=== PATIENT | female | born 1935 | race Caucasian/White ===

== ENCOUNTER 2017-01-06 15:45 | Outpatient (CLI) | payer OTHER ==
[~2017-01-06 15:45] MED LIST: CARVEDILOL3.125 MG PO; COMBIVENT RESPIMAT IN; COUMADIN2.5 MG PO; DEMADEX10 MG PO; DIGITEK0.125 MG PO; DORZOLAMIDE HCL2 % OP; ESTRADIOL; ESTRADIOL0.025 MG/1 TOP; FOSAMAX70 MG PO; GARLIC PO; GLACOMA EYE DROPS; KLOR-CON 1010 MEQ PO; LATANOPROST0.005 % OP; LISINOPRIL10 MG PO; MUCINEX600 MG PO; NORCO1 TA1 PO; PARSLEY PO; PRILOSEC OTC20 MG PO; PRINIVIL5 MG PO; PROLIA60 MG/ML IM; QVAR80 MCG IN; TYLENOL325 MG PO; VENTOLIN HFA IN; VITAMIN D-31000 UNIT PO; WARFARIN SODIU2.5 MG PO; [UNRECOGNIZED DRUG - OTHER] PO
--- NOTE | 2017-01-06 18:17 | DIAGNOSTIC IMAGING REPORT ---
PROCEDURE: US BREAST ULTRASOUND - LEFT INDICATION: LEFT BREAST SWELLING, ERRYTHEMA, POST LUMPECTOMY 11/10 TECHNIQUE: High resolution wilkinson scale and color Doppler sonographic images of the left breast. COMPARISON: None. FINDINGS: There is a 7 x 3 x 1.5 cm fluid collection in the caudal aspect of the left breast consistent with seroma. IMPRESSION: 1. There is 7 x 3 x 1.5 cm fluid collection in the caudal left breast, most consistent with seroma. 2. Findings discussed with Jennifer Crouch. RESULT CODE: 2- Benign finding(s). A. A negative report should not delay biopsy if a dominant or clinically suspicious mass is present. 10-15% of cancers are not identified by x-ray. B. A negative report may reinforce clinical impression. C. Adenosis and dense breasts may obscure an underlying neoplasm. D. False positive reports average 6-10%. E.. A yearly screening mammogram is recommended. A reminder letter will be scheduled.
[2017-04-03] MEDS ORDERED: VITAMIN D-31000 UNIT PO (17:31)
[2017-04-03] MEDS ORDERED: tylenol arthritis PO (17:33)
[2017-04-03] MEDS ORDERED: [UNRECOGNIZED DRUG - OTHER] OP (17:35)
[2017-04-03] MEDS ORDERED: TRAZODONE HCL50 MG PO (17:36)
== END 2017-01-06 23:00 ==
LOC: US SRH 15:45
DX: N63 Unspecified lump in breast (principal); L53.9 Erythematous condition, unspecified

== ENCOUNTER 2017-01-09 13:45 | Outpatient (CLI) | payer OTHER ==
--- NOTE | 2017-01-09 17:02 | DIAGNOSTIC IMAGING REPORT ---
PROCEDURE: MR BRAIN W/WO CONTRAST; FAILED EXAM INDICATION: HEADACHES FINDINGS: The patient was unable to undergo study due to equipment failure. She will be rescheduled for the following week. IMPRESSION: 1. Failed examination (MRI brain).
[2017-04-03] MEDS ORDERED: VITAMIN D-31000 UNIT PO (17:31)
[2017-04-03] MEDS ORDERED: tylenol arthritis PO (17:33)
[2017-04-03] MEDS ORDERED: [UNRECOGNIZED DRUG - OTHER] OP (17:35)
[2017-04-03] MEDS ORDERED: TRAZODONE HCL50 MG PO (17:36)
== END 2017-01-09 23:00 | disposition home or self-care (01) ==
LOC: MRI SRH 13:45
DX: R51 Headache (principal); Z53.8 Procedure and treatment not carried out for other reasons

== ENCOUNTER 2017-01-15 13:46 | Outpatient (CLI) | payer OTHER ==
--- NOTE | 2017-01-16 10:53 | DIAGNOSTIC IMAGING REPORT ---
PROCEDURE: MR BRAIN W/WO CONTRAST INDICATION: YOUNG TECHNIQUE: Multiplanar multisequence MRI imaging of the brain without contrast. Post administration of 9 ml ProHance gadolinium based IV contrast, three plane T1 fat sat sequences were obtained. COMPARISON: None available FINDINGS: The midline structures are normally formed. The ventricular system is normal in size. Basal cisterns are patent. Flow voids in the major intracranial vessels are normal. No vascular malformations seen post contrast. There is an area of encephalomalacia in the right frontal lobe. There is no enhancement or mass effect. Scattered areas of increased signal are seen in the periventricular white matter consistent with small-vessel ischemic disease. No restricted diffusion to suggest acute ischemia. No evidence of acute or chronic intraparenchymal or extra-axial hemorrhage. No mass, mass effect, or midline shift. No suspicious enhancement. Normal signal in the visible bones. The sinuses are normally aerated. Visible extracranial soft tissues including the orbits are normal. IMPRESSION: 1. Periventricular small-vessel ischemic disease. 2. Focal area of all right frontal encephalomalacia. No abnormal enhancement.
[2017-04-03] MEDS ORDERED: VITAMIN D-31000 UNIT PO (17:31)
[2017-04-03] MEDS ORDERED: tylenol arthritis PO (17:33)
[2017-04-03] MEDS ORDERED: [UNRECOGNIZED DRUG - OTHER] OP (17:35)
[2017-04-03] MEDS ORDERED: TRAZODONE HCL50 MG PO (17:36)
== END 2017-01-15 23:00 | disposition home or self-care (01) ==
LOC: MRI SRH 13:46
DX: G93.89 Other specified disorders of brain (principal)

== ENCOUNTER 2017-04-09 07:34 | Inpatient (IN) | payer OTHER ==
[~2017-04-09] VITALS: Ht 160 cm; Wt 96.7 kg
[2017-04-09] VITALS (16 sets, daily range): BP systolic 93–142; BP diastolic 21–89
[~2017-04-09 07:34] MED LIST changes: +TRAZODONE HCL50 MG PO; +[UNRECOGNIZED DRUG - OTHER] OP; +tylenol arthritis PO
--- NOTE | 2017-04-09 11:40 | OPERATIVE REPORT ---
DATE OF SURGERY: 04/09/2017 SURGEON: Smith Fish MD PREOPERATIVE DIAGNOSIS: 1. Painful skin fold of left axilla POSTOPERATIVE DIAGNOSIS: 1. Painful skin fold of left axilla PROCEDURE PERFORMED: 1. Excision of painful skin fold of left axilla, approximately 5 x 15 cm ANESTHESIA: General. INDICATIONS: The patient is an 81-year-old woman with previous bilateral mastectomy. She has a residual redundant skin fold which is repeatedly traumatized with movement on the left side, posterior to her mastectomy site. SURGICAL TECHNIQUE: The patient was taken to the operating room, where a general anesthetic was administered and the patient prepped and draped in the usual sterile fashion. A local anesthetic of 0.5% Marcaine with epinephrine was infiltrated and a transverse elliptical incision designed to encompass the entire redundant skin fold measuring about 5 x 15 cm. This was incised and with the scalpel and electrocautery used to excise the underlying fat in order to rid her of this redundant fold. Hemostasis was obtained with either clips or electrocautery. The specimen was removed from the field. Around the time of removal of the specimen, the anesthesia service noted that the patient had become bradycardic. The pulse became difficult to find and CPR was initiated. The patient received additional medical treatment. During this time, while CPR was ongoing, the patient's pulses were restored. The periwound area was maintained in a sterile fashion and was then rapidly closed placing first a 10 mm José-Sterling drain in the floor of the wound and brought out through a lateral stab wound, where it was secured to the skin with a 2-0 nylon suture. The skin edges were reapproximated rapidly with skin rupal. This was covered with sterile dressings. Toward the end of this; however, the patient once again developed bradycardia and requiring chest compression and additional medical therapies. This again restored her to palpable peripheral pulses and a heart rate of around 50. The internal medicine consultants and the emergency room doctors all responded to the situation and assisted. As of this dictation, the patient is still in the operating room, but is hemodynamically stable and being prepared to be transported to the ICU for ongoing medical monitoring and care.
--- NOTE | 2017-04-09 12:36 | DIAGNOSTIC IMAGING REPORT ---
PROCEDURE: XR CHEST 1 VIEW INDICATION: PT ON VENT NOW TECHNIQUE: Portable AP view 12:30 p.m. COMPARISON: Chest 07/11/2010 FINDINGS: ET tube is in good position. There is cardiomegaly and pulmonary vascular congestion. IMPRESSION: 1. ET tube in good position
--- NOTE | 2017-04-09 13:05 | CONSULTATION REPORT ---
DATE OF CONSULTATION: 04/09/2017 REFERRING PROVIDER: Smith Fish MD REASON FOR CONSULT: Cardiac arrest. HISTORY OF PRESENT ILLNESS: This is an 81-year-old white female who was intubated and is not able to give any history, so history was taken from the OR notes and also the medical record. This patient was going through a procedure for breast cancer flap procedure, was under general anesthesia, became hypotensive and bradycardic to the point that pulse was not palpable so the patient had to have CPR. This happened twice in the OR and the patient was started on epinephrine drip and IV fluid and finally got back to spontaneous breathing and also palpable pulse with a measurable blood pressure and the patient was intubated and transferred to the ICU. MEDICAL/SURGICAL HISTORY: Past medical history: Remarkable for atrial fibrillation, coronary artery disease, congestive heart failure, pulmonary hypertension, poliomyelitis Surgical history: Remarkable for cataract surgery, tonsillectomy, adenectomy, right mastectomy in 1967, left mastectomy in 10/2016, dilation of esophageal stricture after GERD, appendectomy, hysterectomy and mass excision from the back. Last hospitalization possibly was in 2015 for the mastectomy. MEDICATIONS: 1. Patient takes a calcium supplement. 2. Carvedilol 3.125 mg twice a day. 3. Combivent inhaler 2 puffs 4 times a day. 4. Estradiol 0.025 mg patch weekly. 5. Combivent inhaler 2 puffs 4 times a day. 6. Combivent nebulizer treatments. 7. Lisinopril 5 mg daily. 8. Torsemide 100 mg twice a day. 9. Prilosec 20 mg daily. 10. Triazolam 0.25 mg half tablet at bedtime. 11. Warfarin 2.5 mg daily except Mondays and Fridays. ALLERGIES: 1. CODEINE. SOCIAL HISTORY: The patient is . No history of smoking, but she used to be a smoker. Drinks alcohol only on social basis. No drug abuse. The patient is and has 3 daughters and one stepson and one stepdaughter. FAMILY HISTORY: Noncontributory. REVIEW OF SYSTEMS: Could not be obtained because the patient is intubated. PHYSICAL EXAMINATION: VITAL SIGNS: Temperature 97.5, pulse is 59, respiratory rate is 17 on the vent at rate of 16, blood pressure 134/51, oxygen saturation 94% on 2 L. GENERAL APPEARANCE: Well-developed, well-nourished, patient is awake, but intubated on the vent. HEAD AND NECK: Ears: Normal tympanic membrane. Mouth: Could not be examined. Nose: Normal mucosa. Neck: Supple. No JVD. No carotid bruit. LUNGS: Decreased air exchange all over the lungs. No rhonchi or wheezing or crackles. HEART: Regular S1 and S2. No murmur. No S3 was heard. ABDOMEN: Soft, nontender. Bowel sounds are positive. The patient has a surgical dressing on the left side of the chest. EXTREMITIES: No edema. Good peripheral pulses. No signs of DVT or cyanosis. MUSCULOSKELETAL: Grossly within normal limits. NEUROLOGIC: The patient is alert, but intubated, able to move all her extremities. Deep tendon reflexes are bilateral and symmetric. Pupils are equal, round, and reactive to light. Extraocular movements are intact. No nystagmus. Deep tendon reflexes are bilateral and symmetric. LAB/IMAGING: The only lab available is white blood count is 4.3, hemoglobin is 10, hematocrit 31.1, and platelet count is 162. IMPRESSION: 1. Cardiac arrest. 2. Atrial fibrillation. 3. Coronary artery disease. 4. Congestive heart failure with pulmonary hypertension. 5. History of breast cancer. PLAN: The patient will continue on IV epinephrine and ventilation, will obtain a CBC with chem-12, INR, CK and troponin I q.8 hours x3 and D-dimer and BNP. We will order echocardiogram and will order chest x-ray and EKG and we will hold outpatient medications for the time being. The patient will follow up in ICU with the hospitalist.
--- NOTE | 2017-04-09 16:59 | Progress Note ---
Subjective General Talked to patient's production sorter Dr. Juarez, today E/F down to 15% comparing to 2 weeks ago which was 65%, Dr. Juarez thinks sever pulmonary HTN and anastesia played big role in global ischemia of Heart, no angiogram intervention indicated now his recommendation to start Heparin IV along with ASA and statin, instead of warfarin, D/W Dr. Fischer he is fine with this treatment will do this
--- NOTE | 2017-04-09 16:59 | Progress Note ---
Subjective General Talked to patient's nursing program chair Dr. Juarez, today E/F down to 15% comparing to 2 weeks ago which was 65%, Dr. Juarez thinks sever pulmonary HTN and anastesia played big role in global ischemia of Heart, no angiogram intervention indicated now his recommendation to start Heparin IV along with ASA and statin, instead of warfarin, D/W Dr. Fischer he is fine with this treatment will do this
[2017-04-10] VITALS (25 sets, daily range): BP systolic 86–142; BP diastolic 36–82
--- NOTE | 2017-04-10 06:33 | Progress Note ---
Subjective General his is an 81-year-old white female who was intubated and is not able to give any history, so history was taken from the OR notes and also the medical record. This patient was going through a procedure for breast cancer flap procedure, was under general anesthesia, became hypotensive and bradycardic to the point that pulse was not palpable so the patient had to have CPR. This happened twice in the OR and the patient was started on epinephrine drip and IV fluid and finally got back to spontaneous breathing and also palpable pulse with a measurable blood pressure and the patient was intubated and transferred to the ICU. Intubated but alert seems comfortable, no acute distress able to communicate by writing Review of system: Respiratory system: Patient is intubated but alert and does not seem in respiratory distress Additional: No fever no chills Cardiac system: No chest pain no palpitations Physical Exam Vital Signs / I&Os Vital Signs Date Time Temp Pulse Resp B/P Pulse O2 O2 Flow FiO2 Ox Delivery Rate 04/10 0554 71 22 102/43 98 Ventilator 40 05/19 0412 77 25 111/71 100 Ventilator 40 05/19 0310 71 20 110/48 96 Ventilator 40 05/19 0300 2.0 / 0221 97.7 70 24 112/54 95 Ventilator 40 05/19 0121 81 15 105/51 97 05/19 0015 63 25 104/69 96 Ventilator 2.0 / 0000 Ventilator 40 05/18 2300 76 25 105/53 97 Ventilator 40 05/18 2239 97.0 05/18 2202 92 25 98/62 94 Ventilator 40 05/18 2125 Ventilator 40 05/18 2118 2.0 /18 2107 87 22 112/64 97 Ventilator 40 05/18 2010 84 22 93/54 97 Ventilator 40 05/18 1905 97.7 110 17 96/55 97 Ventilator 40 05/18 1817 119 05/18 1801 97.5 05/18 1800 127 17 105/47 94 Ventilator 40 05/18 1658 113 22 98/21 95 Ventilator 40 05/18 1604 101 22 108/33 95 Ventilator 50 05/18 1504 89 17 113/22 100 Ventilator 50 05/18 1410 97/42 05/18 1404 99.1 88 19 102/43 99 Ventilator 05/18 1300 98 16 113/54 100 Ventilator 50 05/18 1257 96.3 92 10 119/38 98 Ventilator 50 04/09 1241 90 15 138/38 100 Ventilator 50 04/09 1215 104 14 142/76 100 Ventilator 04/09 1202 96.4 95 14 128/89 100 Ventilator 50 04/09 0735 97.5 59 17 134/51 94 Nasal 2.0 Cannula I&O 04/10 0000 04/09 1600 04/09 0800 Intake Total 0 1800 Output Total 27 215 Balance -27 1585 General Appearance No acute distress Lungs Clear to auscultation Neck Supple Cardiovascular Regular rate and rhythm, Normal S1 and S2, No murmurs, gallops, rubs Abdomen Normal bowel sounds, Soft, No tenderness Extremities Normal exam (2+ edema bilaterally) Skin No Rashes Psych/Mental Status Mental status normal LAB Results Laboratory Tests 04/10 04/10 04/10 04/10 04/09 0500 0400 0400 0030 2042 Blood Gas Sample Site RR Total CO2 (24.0 - 30.0 mmol/L) 30.9 ABG pH (7.35 - 7.45) 7.36 ABG pCO2 at Pt Temp (35 - 45 mmHg) 52.2 ABG pO2 at Pt Temp (60.0 - 80.0 mmHg) 93.9 ABG HCO3 (20.0 - 26.0 mmol/L) 29.3 ABG O2 Sat Calc/Otoniel (95.1 - 100.0 %) 97.9 ABG Base Excess (-6.0 - -6.0 mmol/L) 3.5 ABG Reduced Hgb (%) 2.1 ABG Carboxyhemoglobin (0.5 - 1.5 %) 1.7 ABG Methemoglobin (0.4 - 1.5 %) 0.0 Elvis Test YES Other Total Hgb (12.0 - 16.0 g/dL) 9.6 A-a O2 Gradient (7.0 - 14.0 mmHg) 133.1 Hgb O2 Saturation (95.0 - 100.0 %) 96.2 Respiration Rate (/MIN) 20 Vent Mode CPAP FiO2 (20 - 101 %) 40 Tidal Volume (cc) 425 PEEP (cmH2O) 5 Pressure Support (cmH2O) 12 Chemistry Plasma Sodium (136 - 145 mmol/L) 142 Plasma Potassium (3.5 - 5.1 mmol/L) 5.1 Plasma Chloride (98 - 107 mmol/L) 103 CO2 (Enzymatic) (21 - 32 mmol/L) 31 BUN (7 - 18 mg/dL) 43 Creatinine (0.6 - 1.3 mg/dL) 2.2 Est GFR ( Amer) (mL/min) 27.60 Est GFR (Non-Af Amer) (mL/min) 22.77 Glucose (70 - 110 mg/dL) 168 Plasma Calcium (8.5 - 10.1 mg/dL) 7.7 Plasma Magnesium (1.8 - 2.4 mg/dL) 2.1 Troponin (0.00 - 1.5 ng/mL) 1.86 2.03 Coagulation APTT (24 - 34 SECONDS) > 150 Protein C Antigen Pending Hematology WBC (4.5 - 11.5 K/uL) 9.1 RBC (4.00 - 5.20 M/uL) 3.22 Hgb (12.0 - 16.0 gm/dL) 9.6 Hct (36.0 - 46.0 %) 29.7 MCV (80 - 100 fL) 93 MCH (26 - 34 pg) 30 RDW (11.6 - 14.8 %) 15.1 Neut % (Auto) (50 - 75 %) 78.8 Lymph % (Auto) (25 - 40 %) 6.1 Huntington % (Auto) (3 - 14 %) 14.6 Eos % (Auto) (0 - 4 %) 0.2 Baso % (Auto) (0 - 2 %) 0.3 Plt Count, EDTA (150 - 400 K/uL) 139 PUBS MCHC (31 - 37 g/dL) 32 04/09 04/09 04/09 04/09 1715 1710 1710 1710 Blood Gas Sample Site RR Total CO2 (24.0 - 30.0 mmol/L) 28.6 ABG pH (7.35 - 7.45) 7.48 ABG pCO2 at Pt Temp (35 - 45 mmHg) 44.0 ABG pO2 at Pt Temp (60.0 - 80.0 mmHg) 104.0 ABG HCO3 (20.0 - 26.0 mmol/L) 26.8 ABG O2 Sat Calc/Otoniel (95.1 - 100.0 %) 97.2 ABG Base Excess (-6.0 - -6.0 mmol/L) 3.2 ABG Reduced Hgb (%) 1.0 ABG Carboxyhemoglobin (0.5 - 1.5 %) 1.6 ABG Methemoglobin (0.4 - 1.5 %) 0.0 Elvis Test YES Other Total Hgb (12.0 - 16.0 g/dL) 9.8 Hgb O2 Saturation (95.0 - 100.0 %) 97.8 Respiration Rate (/MIN) 28 Vent Mode PS FiO2 (20 - 101 %) 40 PEEP (cmH2O) 5 Pressure Support (cmH2O) 10 Blood Gas Comments PS TRIAL Chemistry B-Natriuretic Peptide (5 - 100 pg/ml) 458 Coagulation INR (0.8 - 1.2) 1.6 APTT (24 - 34 SECONDS) 31 D-Dimer, Quantitative (0.27 - 0.52 ug/mLFEU) 8.44 Protein C Antigen Pending Free Protein S Antigen Pending Hematology WBC (4.5 - 11.5 K/uL) 11.0 RBC (4.00 - 5.20 M/uL) 3.33 Hgb (12.0 - 16.0 gm/dL) 9.9 Hct (36.0 - 46.0 %) 30.8 MCV (80 - 100 fL) 93 MCH (26 - 34 pg) 30 RDW (11.6 - 14.8 %) 15.3 Neut % (Auto) (50 - 75 %) 76.7 Lymph % (Auto) (25 - 40 %) 7.9 Huntington % (Auto) (3 - 14 %) 14.7 Eos % (Auto) (0 - 4 %) 0.3 Baso % (Auto) (0 - 2 %) 0.4 Plt Count, EDTA (150 - 400 K/uL) 197 PUBS MCHC (31 - 37 g/dL) 32 04/09 04/09 04/09 1600 1250 0759 Chemistry Plasma Sodium (136 - 145 mmol/L) 141 Plasma Potassium (3.5 - 5.1 mmol/L) 4.9 Plasma Chloride (98 - 107 mmol/L) 102 CO2 (Enzymatic) (21 - 32 mmol/L) 27 BUN (7 - 18 mg/dL) 40 Creatinine (0.6 - 1.3 mg/dL) 1.5 Est GFR ( Amer) (mL/min) 42.93 Est GFR (Non-Af Amer) (mL/min) 35.42 Glucose (70 - 110 mg/dL) 135 Plasma Calcium (8.5 - 10.1 mg/dL) 8.5 Total Bilirubin (0.0 - 1.0 mg/dL) 0.8 AST (15 - 37 U/L) 92 ALT (12 - 78 U/L) 62 Alkaline Phosphatase (46 - 116 U/L) 67 Troponin (0.00 - 1.5 ng/mL) 1.01 0.25 Total Protein (6.4 - 8.2 g/dL) 6.7 Albumin (3.3 - 5.0 g/dL) 3.4 Hematology WBC (4.5 - 11.5 K/uL) 4.3 RBC (4.00 - 5.20 M/uL) 3.34 Hgb (12.0 - 16.0 gm/dL) 10.0 Hct (36.0 - 46.0 %) 31.1 MCV (80 - 100 fL) 93 MCH (26 - 34 pg) 30 RDW (11.6 - 14.8 %) 14.8 Neut % (Auto) (50 - 75 %) 60.2 Lymph % (Auto) (25 - 40 %) 18.2 Huntington % (Auto) (3 - 14 %) 18.3 Eos % (Auto) (0 - 4 %) 2.8 Baso % (Auto) (0 - 2 %) 0.5 Plt Count, EDTA (150 - 400 K/uL) 162 PUBS MCHC (31 - 37 g/dL) 32 Microbiology Date/Time Procedure - Status Source Growth 04/09 1940 MRSA Screen - RECD NASAL Assessment and Plan Problem List 1. Cardiac arrest Plan off vasseprossers, will try to extubate today, give small dose of lasix to diurise 2. Pulmonary HTN Plan this is sever and chronic problem,and contributry factor to cardiac arrest, managed by manager publishing 3. CHF (congestive heart failure) Plan this is sever and E/F of 15-20, will address this after stablilzing her 4. Afib Plan this is chronic, rate controlled now 5. CAD (coronary artery disease) Plan had discussion with pt's Substance Abuse Services Director DR Vincent, even if Troponin elevated he think this is global ischemia and no indication for angiogram treat with ASA and Heparin, statin
--- NOTE | 2017-04-10 07:39 | DIAGNOSTIC IMAGING REPORT ---
PROCEDURE: XR CHEST 1 VIEW INDICATION: intubation TECHNIQUE: Single view chest. 05:49 hours COMPARISON: 04/09/2017 at 1229 hours FINDINGS: Endotracheal tube is in place about 5 cm from the joshua. The patient is rotated. The heart size is moderately enlarged, stable. Mild central vascular congestion. Diffuse interstitial thickening. No significant alveolar opacities. No effusion or pneumothorax. Intact osseous structures. Surgical clips surgical drain, skin rupal in the left breast/left axillary region. IMPRESSION: 1. Endotracheal tube could be advanced about 2.5 cm. 2. Enlarged heart with mild central vascular and interstitial congestion. 3. No denise pulmonary edema. 4. Postoperative changes in the left breast. 5. Findings called to the floor.
--- NOTE | 2017-04-10 14:53 | Progress Note ---
Subjective General Talked to Dr. Hale tab machine operator from [facility] about anuria of this patient, She think this patient has perfusion issue with her kidneys due to CPR and on going hypo tension and if we can increase BP as high as we can it might be very helpful even with vassopressors, if pt continued to have anuria for one mor day she will need hemodialysis, since pt could not tolerate dopamin (sever Tachycardia with SVT) will try dobutamin also will give small doses of lasix
--- NOTE | 2017-04-10 14:53 | Progress Note ---
Subjective General Talked to Dr. Hale retail attendant from [facility] about anuria of this patient, She think this patient has perfusion issue with her kidneys due to CPR and on going hypo tension and if we can increase BP as high as we can it might be very helpful even with vassopressors, if pt continued to have anuria for one mor day she will need hemodialysis, since pt could not tolerate dopamin (sever Tachycardia with SVT) will try dobutamin also will give small doses of lasix
--- NOTE | 2017-04-10 16:51 | DIAGNOSTIC IMAGING REPORT ---
REFERRING PHYSICIAN/PROVIDER: Dr. Austin MD CONSULTING EMERGENCY MANAGEMENT SYSTEM DIRECTOR: Ramón Acuña MD PROCEDURE: M-mode 2D echocardiography with spectral and color flow Doppler TECHNICAL QUALITY: Poor INDICATION: cardiac arrest RHYTHM DURING PROCEDURE: The rhythm during the procedure is atrial fibrillation INTERPRETATIONS: LEFT VENTRICLE: The left ventricle was not clearly visualized. There appears to be a severe reduction in her left ventricular systolic function with an EF of approximately 20%. RIGHT VENTRICLE: The right ventricle was not clearly visualized. The right ventricle appears dilated with reduced right ventricular systolic function. ATRIA: The atria was not clearly visualized. There appeared to be severe biatrial enlargement. MITRAL VALVE: The mitral valve is not clearly visualized but there appears to be only mild mitral regurgitation noted. AORTIC VALVE: There is no evidence of any aortic stenosis. TRICUSPID VALVE: There appears to be moderate tricuspid regurgitation noted. There was severe right ventricular systolic pressure within RVSP estimated at 75 mmHg. PULMONIC VALVE: The pulmonic valve is not well visualized. GREAT VESSELS: The great vessels were not well visualized. PERICARDIUM: There is a trivial pericardial effusion noted. IMPRESSION: 1. Severely reduced left ventricular systolic function 2. Dilated right ventricle with reduced right ventricular systolic function 3. Severe biatrial enlargement 4. Mild mitral regurgitation 5. Moderate tricuspid regurgitation next severely increased right ventricular systolic pressure 6. Compared to the prior echo done at [facility] on 03/10/2017, the LVEF is now severely reduced. 7. Results were communicated directly with Dr. Avila.
--- NOTE | 2017-04-10 18:30 | DIAGNOSTIC IMAGING REPORT ---
PROCEDURE: US KIDNEY/RENAL COMPLETE INDICATION: oliguria TECHNIQUE: Transabdominal scans of the kidneys with calculation of resistive indices. Prevoid and postvoid bladder volumes were obtained. COMPARISON: None. FINDINGS: Incidental note of a 2.3 cm gallstone. RIGHT: Kidney measures 9.9 x 5 x 4.6 cm. Cortex measures 1.1 cm. 3.5 cm simple exophytic cyst laterally. No calculi or hydronephrosis. LEFT: Kidney measures 11.2 x 4.7 x 5.4 cm. Cortex measures 1.4 cm. No calculi or hydronephrosis. BLADDER: Catheter in place and bladder not well visualized. IMPRESSION: 1. Right renal simple cyst 2. Kidneys are otherwise unremarkable 3. 2.3 cm gallstone.
--- NOTE | 2017-04-10 21:02 | DIAGNOSTIC IMAGING REPORT ---
PROCEDURE: XR CHEST 1 VIEW INDICATION: PICC LINE PLACEMENT TECHNIQUE: Portable AP view 08:50 p.m. COMPARISON: Chest x-ray 04/10/2017 at 05:42 a.m. FINDINGS: Interval placement of a right PICC line with the tip in satisfactory position. ET tube has been removed. Moderate cardiomegaly with progression of pulmonary vascular congestion and probable small right pleural effusion. Thorax is normal. IMPRESSION: 1. Right PICC line in satisfactory position 2. ET tube removed 3. Cardiomegaly with pulmonary vascular congestion consistent with mild CHF 4. Results called to the floor
[2017-04-11] VITALS (11 sets, daily range): BP systolic 94–121; BP diastolic 37–76
--- NOTE | 2017-04-11 11:19 | Progress Note ---
Subjective General Pt. alert and conversant and without new complaints. Physical Exam Vital Signs / I&Os Vital Signs Date Time Temp Pulse Resp B/P Pulse O2 O2 Flow FiO2 Ox Delivery Rate 04/11 1000 98.4 112 22 101/56 95 Nasal 2.0 Cannula /20 0900 101 24 101/56 97 Nasal Cannula /20 0826 84 25 121/47 97 Nasal 3.0 Cannula /20 0718 98 25 115/47 99 05/20 0654 98.1 / 0616 105 24 112/51 99 Nasal 3.0 Cannula 05/20 0511 96 24 100/76 99 05/20 0412 102 19 94/41 97 05/20 0311 99 17 103/57 98 Nasal 3.0 Cannula /20 0224 98.1 102 25 101/47 94 Nasal 3.0 Cannula /20 0114 111 22 99/47 96 Nasal 4.0 Cannula /20 0012 97.5 05/20 0011 107 22 115/37 95 Nasal 4.0 Cannula / 2313 116 30 110/53 90 Nasal 4.0 Cannula / 2219 97 31 115/40 94 Nasal 2.0 Cannula 05/ 2138 2.0 / 2103 98.1 102 20 119/37 98 Nasal 2.0 Cannula / 2030 Nasal 2.0 Cannula / 2000 102 25 119/36 93 Nasal 2.0 Cannula 05/19 1900 89 30 107/48 98 Nasal 2.0 Cannula 05/ 1818 97.5 05/ 1800 99 24 107/48 100 Nasal 2.0 Cannula 05/19 1747 2.0 / 1700 93 24 110/54 99 Nasal 2.0 Cannula 05/19 1613 66 24 100/47 100 Nasal 2.0 Cannula 05/19 1529 97.3 05/ 1500 59 26 89/47 100 Nasal 2.0 Cannula 05/19 1416 97.9 66 26 90/47 100 Nasal 2.0 Cannula 05/19 1300 98.4 73 26 98/47 99 Nasal 2.0 Cannula 05/19 1200 73 26 97/40 98 Nasal 2.0 Cannula I&O 04/10 0800 05 1600 04/11 0000 Intake Total 2668 1010 1435 Output Total 32 56 105 Balance 2636 954 1330 General Appearance Alert, Oriented X3, Cooperative Breasts some ooze on dressing, no tense hematoma-note pt. had to get heparin after surgery per cardiology recommendations. Other urine is dark, scant, and blood tinged. Assessment and Plan Problem List 1. Status post mastectomy Plan Pt. will need drain and staple removal in a week or so, but in the meantime has survived her "codes" but is being tranferred for renal failure and possible dialysis. I talked to her this morning and expressed my hope that her cardiac and kidney situations improve. I plan to see her in the clinic in 7-10 days.
--- NOTE | 2017-04-11 11:34 | DISCHARGE SUMMARY ---
ADMIT DATE: 04/09/2017 DISCHARGE DATE: 04/11/2017 DISCHARGE DIAGNOSES: 1. Cardiac arrest. 2. Acute renal failure with aneuria. 3. Pulmonary hypertension. 4. Congestive heart failure with ejection fraction of 15% to 20% and atrial fibrillation. 5. Coronary artery disease BRIEF HISTORY: This is as an 81-year-old white female patient who was going through a procedure for breast cancer for the flap procedure under general anesthesia, became hypotensive and bradycardic to the point that pulse was not palpable so patient had to have CPR. This happened twice. Later on, the patient was intubated and transferred to the ICU. HOSPITAL COURSE: The patient actually did well in the hospital and we were able to get her off the epinephrine and also extubated yesterday. Echocardiogram showed the patient has a 15%-20% ejection fraction, which was 65% two weeks ago. I had a discussion with Dr. Acuña and his impression was the patient has a global ischemia of the heart due to pulmonary hypertension and anesthesia and was suggested to the patient to be on aspirin and statin and IV heparin and IV heparin should be for 48 hours only. The patient continued to have a low urine output. We tried a small dose of IV Lasix, due to low blood pressure was not successful. Also had a discussion with the manufacturing analyst in [facility]. We started the patient on dobutamine drip to get the blood pressure up and profuse the kidneys hoping that it will improve. This was started yesterday, but the patient continued to have severe oliguria and her creatinine jumped up from 2.2 to 3.2, so I had a discussion with manufacturing analyst and she agreed to take the patient over to [facility] for possible hemodialysis and I also discussed the case with the hospitalist, Dr. French Chatman and he is the one accepting the patient so patient will be transferred to [facility] under Dr. Chatman's service. DISCHARGE INSTRUCTIONS/MEDICATIONS: Discharge Medications: 1. Morphine 1 mg 1 hour p.r.n. 2. Lasix 20 mg twice a day. 3. Albuterol inhaler 2 puffs 4 times a day. 4. Dobutamine drip, titrate to the blood pressure over 100. 5. Lipitor 40 mg daily. 6. Heparin drip should be stopped this evening, will be 48 hours. 7. Aspirin 325 mg daily.
--- NOTE | 2017-04-11 11:34 | DISCHARGE SUMMARY ---
ADMIT DATE: 04/09/2017 DISCHARGE DATE: 04/11/2017 DISCHARGE DIAGNOSES: 1. Cardiac arrest. 2. Acute renal failure with aneuria. 3. Pulmonary hypertension. 4. Congestive heart failure with ejection fraction of 15% to 20% and atrial fibrillation. 5. Coronary artery disease BRIEF HISTORY: This is as an 81-year-old white female patient who was going through a procedure for breast cancer for the flap procedure under general anesthesia, became hypotensive and bradycardic to the point that pulse was not palpable so patient had to have CPR. This happened twice. Later on, the patient was intubated and transferred to the ICU. HOSPITAL COURSE: The patient actually did well in the hospital and we were able to get her off the epinephrine and also extubated yesterday. Echocardiogram showed the patient has a 15%-20% ejection fraction, which was 65% two weeks ago. I had a discussion with Dr. Acuña and his impression was the patient has a global ischemia of the heart due to pulmonary hypertension and anesthesia and was suggested to the patient to be on aspirin and statin and IV heparin and IV heparin should be for 48 hours only. The patient continued to have a low urine output. We tried a small dose of IV Lasix, due to low blood pressure was not successful. Also had a discussion with the camp cook in [facility]. We started the patient on dobutamine drip to get the blood pressure up and profuse the kidneys hoping that it will improve. This was started yesterday, but the patient continued to have severe oliguria and her creatinine jumped up from 2.2 to 3.2, so I had a discussion with camp cook and she agreed to take the patient over to [facility] for possible hemodialysis and I also discussed the case with the hospitalist, Dr. French Chatman and he is the one accepting the patient so patient will be transferred to [facility] under Dr. Chatman's service. DISCHARGE INSTRUCTIONS/MEDICATIONS: Discharge Medications: 1. Morphine 1 mg 1 hour p.r.n. 2. Lasix 20 mg twice a day. 3. Albuterol inhaler 2 puffs 4 times a day. 4. Dobutamine drip, titrate to the blood pressure over 100. 5. Lipitor 40 mg daily. 6. Heparin drip should be stopped this evening, will be 48 hours. 7. Aspirin 325 mg daily.
== END 2017-04-11 11:20 | disposition short-term general hospital (02) | DRG 987 ==
LOC: SDC SRH 07:34 → SCU SRH 07:35 → SDC SRH 08:55 → EDSTATUS 10:30 → SDC SRH 11:30 → CC SRH 12:36 → SDC SRH 12:36 → CC SRH 04-11 11:20
PROVIDERS: ADMIT Surgery
PROC: 5A12012 Performance of Cardiac Output, Single, Manual (ICD-10-PCS; principal; 2017-04-09 09:30)
PROC: 0HBU0ZZ Excision of Left Breast, Open Approach (ICD-10-PCS; principal; 2017-04-09 09:30)
DX: I24.9 Acute ischemic heart disease, unspecified (principal); I97.711 Intraoperative cardiac arrest during other surgery; I11.0 Hypertensive heart disease with heart failure; I50.21 Acute systolic (congestive) heart failure; N17.0 Acute kidney failure with tubular necrosis; I27.2 Other secondary pulmonary hypertension; T88.59XA Other complications of anesthesia, initial encounter; L76.82 Other postprocedural complications of skin and subcutaneous tissue; Z85.3 Personal history of malignant neoplasm of breast; Z87.891 Personal history of nicotine dependence
CPT/HCPCS: 29229; 50002; 70002; 80034; 80035; 80102; 80212; 80813; 80852; 81240; 81722; 82146; 83463; 83475; 84038; 84044; 85241; 90047; 90074; 90100; 90616; 91320; 91556; 92132; 92720; 94001; 94060; 95011; 95012; 95059